=== PATIENT | male | born 1985 | race Caucasian/White ===

== ENCOUNTER 2017-06-25 20:30 | Emergency (ER) | payer OTHER ==
[~2017-06-25] VITALS: Ht 190.5 cm; Wt 127.0 kg
[2017-06-25 20:33] VITALS: TEMP 36.8; Ht 190.5 cm; Wt 127.0 kg
--- NOTE | 2017-06-25 20:48 | EMERGENCY ROOM VISIT NOTE ---
ED Visit Note First contact with patient: 20:35 CHIEF COMPLAINT: Mid back pain HISTORY OF PRESENT ILLNESS: This 31-year-old male patient presents to the emergency department ambulatory complaining of pain in the mid back which began just prior to arrival at work. The patient was attempting to lift up a heavy piece of equipment when he felt a twinge or sharp pain in the middle of his back. The pain is worse with movement, engaging the muscles in his back and occasionally with a deep breath. He denies any chest pain, shortness of breath or trouble breathing. He denies any numbness or tingling in the arms or the legs. He denies any low back pain. He denies any abdominal pain, nausea or vomiting. The pain was gradual in onset, is now constant and worse with movement. The patient notes the pain as sharp and a 8/10. The patient has taken nothing for relief of the pain. The patient denies any bowel or bladder difficulties. There has been no leg numbness or weakness, and no change in sensation. No nausea or vomiting or abdominal pain. No chest pain or shortness of breath. The patient has not had prior back injuries. REVIEW OF SYSTEMS: No dysuria or increased urinary frequency. A 10 system review of systems was completed and pertinent positives and negatives are in the HPI. ALLERGIES: No known drug allergies MEDICATIONS: Vitamins PMH: None SOCIAL HISTORY: The patient is employed at [employer]. He does not smoke. PHYSICAL EXAM: VITALS: Vitals are noted on the nurse's note and reviewed by myself. No abnormalities noted. GENERAL: This is a 31-year-old male, in no acute distress, nondiaphoretic, well- developed well-nourished. SKIN: The skin was without rashes, erythema, edema, or bruising. Capillary refill less than 2 seconds. NECK: Supple without nuchal rigidity. No cervical spine tenderness. No paraspinous muscle tenderness. HEART: Regular rate and rhythm without murmurs gallops or rubs. LUNGS: Clear to auscultation bilaterally without wheezes, rales or rhonchi. MUSCULOSKELETAL: No muscle atrophy, erythema, or edema noted of the back. There is no tenderness over the lumbar spinous processes. There is no tenderness over the paraspinous muscles. There is mild tenderness over the low thoracic spine and paraspinous muscles. There are no muscle spasms present. The patient is slow to move around with maximum tenderness with twisting. Negative straight leg raise test. NEURO: Patient was alert and oriented to person place and time. Normal sensation to light and sharp touch. Deep tendon reflexes 2+ in the upper extremities. Strength is 5/5 in the upper extremities bilaterally. EMERGENCY DEPARTMENT COURSE: The patient was seen and examined. Previous visits were reviewed. The patient complains of pain in the mid back that occurred at work when he was lifting a heavy object. The pain is worse with movement. He does not seem to have any shortness of breath or chest pain. An x -ray was obtained and does not reveal any significant abnormality. This is likely musculoskeletal in nature. The patient declined Motrin or muscle relaxants. He does not have any neurologic deficit on exam or by history. The patient was encouraged to rest. He was advised not to lift more than 5 pounds for the next 3 days. He should follow up with an employer proved Worker's Compensation doctor before returning to work. He should return to the ER with any worsening symptoms. THORACIC SPINE 3 VIEWS CLINICAL HISTORY: Midthoracic back pain. FINDINGS: AP, lateral, and swimmer's views of the thoracic spine are obtained. No prior studies are available for comparison at the time of dictation. The skeletal structures are well mineralized. There is no radiographic evidence of fracture or malalignment. Vertebral body height and alignment are maintained. The transverse processes and pedicles are grossly intact as seen on the frontal view. The disc spaces are preserved. The visualized lung parenchyma appears clear. IMPRESSION: Unremarkable radiographic assessment of the thoracic spine. I attest that I have personally reviewed the patient's current medication list. Blood Pressure Screening: Patient was found to have a slightly elevated blood pressure due to circumstances. I do not believe that the patient requires hypertension monitoring. Current/Historical Medications No Active Prescriptions or Reported Meds Allergies Coded Allergies: No Known Allergies (Unverified , 06/25/17) Vital Signs Date Time Temp Pulse Resp B/P (MAP) Pulse Ox O2 Delivery O2 Flow Rate FiO2 06/25/17 21:33 56 16 134/86 97 06/25/17 20:33 36.8 55 18 98 Room Air Departure Information Impression Primary Impression: Thoracic back sprain Additional Impression: Work related injury Dispostion Home / Self-Care Condition GOOD Prescriptions No Active Prescriptions or Reported Meds Referrals No Doctor, Assigned (PCP) Forms HOME CARE DOCUMENTATION FORM, IMPORTANT VISIT INFORMATION, Work Instructions Additional Instructions: Off work 06/25/17 No lifiting more than 5 pounds 06/26/17-06/28/17 Recheck with worker's compensation doctor for clearance to full duty Patient Instructions ED Sprain Thoracic Spine, My [facility] Additional Instructions Motrin 600mg every 6-8 hours for moderate pain Heat intermittently over the next 24-48 hours No lifting more than 5 pounds for the next 3 days Contact an employer proved Worker's Compensation doctor first thing in the morning to schedule a follow-up appointment this week for recheck and clearance to full duty Return with any worsening symptoms Problem Qualifiers Primary Impression: Thoracic back sprain Encounter type: initial encounter Qualified Codes: S23.9XXA - Sprain of unspecified parts of thorax, initial encounter
--- NOTE | 2017-06-25 21:11 | DIAGNOSTIC IMAGING REPORT ---
THORACIC SPINE 3 VIEWS CLINICAL HISTORY: Midthoracic back pain. FINDINGS: AP, lateral, and swimmer's views of the thoracic spine are obtained. No prior studies are available for comparison at the time of dictation. The skeletal structures are well mineralized. There is no radiographic evidence of fracture or malalignment. Vertebral body height and alignment are maintained. The transverse processes and pedicles are grossly intact as seen on the frontal view. The disc spaces are preserved. The visualized lung parenchyma appears clear. IMPRESSION: Unremarkable radiographic assessment of the thoracic spine. Electronically signed by: Wally Bowden M.D. 06/25/2017 9:10 PM Dictated Date/Time: 06/25/2017 9:09 PM
[2017-06-25 21:33] VITALS: BP 134/86; PULSE 56; O2SAT 97
== END 2017-06-25 21:34 | disposition home or self-care (01) ==
LOC: C.EDB 20:32 → C.EDD 21:34
DX: S23.3XXA Sprain of ligaments of thoracic spine, initial encounter (principal); X50.1XXA Overexertion from prolonged static or awkward postures, initial encounter; Y92.89 Other specified places as the place of occurrence of the external cause; Y99.0 Civilian activity done for income or pay